=== PATIENT | male | born 1965 | race Caucasian/White ===

== ENCOUNTER 2023-03-31 15:11 | Inpatient (IN) | payer SELFPAY ==
[~2023-03-31] VITALS: Ht 175.3 cm; Wt 76.7 kg
[2023-03-31 15:17] VITALS: O2SAT 100
[2023-03-31] MEDS ORDERED: IOHEXOL-350 100 ML BOTTLE ONE (16:08)
[2023-03-31 16:09] LABS: BASOPHILS % 0.6 % (0.0-2.0); EOSINOPHILS % 1.4 % (0.0-5.0); HEMATOCRIT. 45.9 % (42.0-52.0); HEMOGLOBIN. 16.1 g/dL (14.0-18.0); LYMPHOCYTES % 23.6 % (20.0-50.0); MEAN CORPUSCULAR HEMOGLOBIN 32.3 pg (28.0-32.0); MEAN CORPUSCULAR VOLUME 92.2 fL (80.0-94.0); MEAN PLATELET VOLUME 7.6 fl (7.4-10.4); MONOCYTES % 8.5 % (2.0-8.0); NEUTROPHILS % 65.9 % (40.0-76.0); PLATELET 306 x1000/uL (130-400); RED BLOOD CELL COUNT 4.98 mill/uL (4.7-6.1); RED CELL DISTRIBUTION WIDTH 13.5 % (11.6-14.6)
[2023-03-31] MEDS ORDERED: ASPIRIN 325MG EC TABLET PO ONE (16:30)
[2023-03-31 16:33] LABS: CHLORIDE 110 mEq/L (98-107)
[2023-03-31 16:35] LABS: PARTIAL THROMBOPLASTIN TIME 27.3 sec (23.4-31.0); PROTHROMBIN TIME 10.4 sec (9.6-11.0)
[2023-03-31 19:58] LABS: CLARITY URINE CLEAR (CLEAR); COLOR URINE YELLOW (YELLOW); KETONES URINE NEGATIVE (NEGATIVE); LEUKOCYTE ESTERASE URINE NEGATIVE (NEGATIVE); NITRITE URINE NEGATIVE (NEGATIVE); OCCULT BLOOD URINE NEGATIVE (NEGATIVE); PH URINE 7.5 (4.5-8.0); PROTEIN URINE NEGATIVE (NEGATIVE); SPECIFIC GRAVITY URINE 1.029 (1.005-1.030); UROBILINOGEN URINE 0.2 E.U./dL (0.2-1.0)
[2023-03-31] MEDS ORDERED: NA PHOS,M-B/NA PHOS,DI-BA ENEMA 118ML PR PRN (20:15)
[2023-03-31] MEDS ORDERED: DOCUSATE SODIUM 100MG CAPSULE PO PRN (20:15)
[2023-03-31] MEDS ORDERED: CLONIDINE 0.1MG TABLET PO PRN (20:15)
[2023-03-31] MEDS ORDERED: ONDANSETRON HCL 4MG/2ML INJ IV PRN (20:15)
[2023-03-31] MEDS ORDERED: ACETAMINOPHEN 650MG/20.3ML UDC GT PRN ×2 (20:15)
[2023-03-31] MEDS ORDERED: MAGNESIUM/ALUMINUM HYDROXIDE/SIMETHICONE 30ML UDC PO PRN (20:15)
[2023-03-31 20:46] LABS: T4 FREE 1.02 ng/dL (0.76-1.46)
[2023-03-31 21:07] LABS: VITAMIN B12 SERUM 334 pg/mL (211-911)
[2023-03-31 21:12] LABS: FOLIC ACID (FOLATE) SERUM > 20.00 ng/mL (>5.38)
[2023-03-31] MEDS: CLOPIDOGREL 75MG TABLET PO SCH (21:12)
[2023-03-31 22:00] VITALS: BP 136/86; PULSE 63; RESP 16; TEMP 97.7
[2023-04-01] VITALS: BP 127/85; PULSE 63; RESP 20; TEMP 97.7
[2023-04-01 04:00] VITALS: BP 123/78; PULSE 61; RESP 18; TEMP 97.1; TEMP 97.7
[2023-04-01 07:34] LABS: BASOPHILS % 0.7 % (0.0-2.0); EOSINOPHILS % 2.6 % (0.0-5.0); HEMATOCRIT. 44.1 % (42.0-52.0); HEMOGLOBIN. 15.4 g/dL (14.0-18.0); LYMPHOCYTES % 24.2 % (20.0-50.0); MEAN CORPUSCULAR HEMOGLOBIN 32.1 pg (28.0-32.0); MEAN CORPUSCULAR VOLUME 91.7 fL (80.0-94.0); MEAN PLATELET VOLUME 7.9 fl (7.4-10.4); NEUTROPHILS % 61.5 % (40.0-76.0); PLATELET 293 x1000/uL (130-400); RED BLOOD CELL COUNT 4.81 mill/uL (4.7-6.1); RED CELL DISTRIBUTION WIDTH 13.6 % (11.6-14.6)
[2023-04-01 08:00] VITALS: BP 131/81; PULSE 68; RESP 16; TEMP 98
[2023-04-01] MEDS: CLOPIDOGREL 75MG TABLET PO SCH (08:21)
[2023-04-01] MEDS ORDERED: ASPIRIN 81MG EC TABLET PO SCH (09:00)
[2023-04-01 10:58] LABS: CHLORIDE 107 mEq/L (98-107)
[2023-04-01 11:08] LABS: CREATINE KINASE 102 IU/L (39-308)
[2023-04-01] MEDS ORDERED: CLOP-31 PO (11:50)
[2023-04-01] MEDS ORDERED: ASPI-1406 PO (11:50)
[2023-04-01] MEDS ORDERED: LIP40 PO (11:50)
[2023-04-01 16:17] LABS: *AMPHETAMINES SCREEN URINE NEGATIVE (NEGATIVE); *BARBITURATES SCREEN URINE NEGATIVE (NEGATIVE); *BENZODIAZEPINES SCREEN URINE NEGATIVE (NEGATIVE); *COCAINE SCREEN URINE NEGATIVE (NEGATIVE); CANNABINOID URINE SCREEN NEGATIVE (NEGATIVE); METHADONE URINE SCREEN NEGATIVE (NEGATIVE); OPIATES URINE SCREEN NEGATIVE (NEGATIVE); PHENCYCLIDINE URINE SCREEN NEGATIVE (NEGATIVE)
[2023-04-01] MEDS ORDERED: PNEUMOCOCCAL 23-VAL P-SAC VAC 0.5 ML IM ONE (21:00)
[2023-04-01] MEDS ORDERED: ATORVASTATIN CALCIUM 40MG TABLET PO SCH (21:00)
== END 2023-04-01 18:00 | disposition home or self-care (01) | DRG 47 ==
LOC: ER 15:11 → 8WST 18:44 → EDBEDREQTM 19:12 → EDBEDREQ 19:12 → ENRESERV 21:52
PROVIDERS: ADMIT Hospitalist; ATTEND Hospitalist
DX: G45.9 Transient cerebral ischemic attack, unspecified (principal); E83.51 Hypocalcemia; E78.5 Hyperlipidemia, unspecified
CPT/HCPCS: 36415; 70496; 70498; 71045; 80048; 80053; 80061; 80305; 81003; 82550; 82607; 82746; 82962; 83036; 83880; 84439; 84443; 84484; 85025; 85379; 90732; 93005; 99291; Q9967